=== PATIENT | female | born 1960 | race Caucasian/White ===

== ENCOUNTER 2018-09-12 06:48 | Day surgery (SDC) | payer OTHER ==
[~2018-09-12 06:48] MED LIST: ACETAMINOOPHEN-1 TAB PO; ANAPROX275 MG PO; BONIVA3 MG/3 ML/ PO; CIPRO500 MG PO; CLONAZEPAM0.5 MG PO; LIPITOR20 MG PO; LIPITOR40 MG PO; LOTRISONE CREAM45 GM TP; M.V.I. ADULT10 ML PO; MELATONIN1 MG PO; MYLICON 125MG125 MG PO; NEPHRONEX-SL T1 EACH PO; PAXIL20 MG PO; PRILOSEC40 MG PO; SYNTHROID75 MCG PO; [UNRECOGNIZED DRUG - OTHER] PO
[2018-09-12] MEDS ORDERED: CIPRO500 MG PO (13:55)
[2018-09-12] MEDS ORDERED: COLACE100 MG PO (13:55)
[2018-09-12] MEDS ORDERED: NAPROXEN375 MG PO (13:55)
== END 2018-09-12 17:00 | disposition home or self-care (01) ==
LOC: CIR.AMB 06:48
DX: N81.6 Rectocele (principal); N81.5 Vaginal enterocele